=== PATIENT | female | born 1965 | race African-American/Black ===

== ENCOUNTER 2018-07-04 00:52 | Emergency (ER) | payer OTHER ==
[~2018-07-04] VITALS: Ht 172.7 cm; Wt 113.4 kg
[2018-07-04] MEDS ORDERED: QUETIAPINE FUMA25 MG ORAL (00:56)
[2018-07-04 01:00] VITALS: BP 168/84
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
[2018-07-04] MEDS ORDERED: LORazepam Inj 2mg/ml 1ml IV ONE (01:30)
[2018-07-04] MEDS ORDERED: LORazepam Inj 2mg/ml 1ml IM ONE (02:00)
--- NOTE | 2018-07-04 02:13 | Diagnostic Imaging Report ---
EXAM: XR Chest, 1 View CLINICAL HISTORY: DYSPNEA TECHNIQUE: Frontal view of the chest. COMPARISON: No relevant prior studies available. FINDINGS: Lungs: Low lung volumes. Patchy right lower lung infiltrates. Pleural space: Unremarkable. No pneumothorax. Heart: Unremarkable. No cardiomegaly. Mediastinum: Unremarkable. Bones/joints: Degenerative changes of the spine. IMPRESSION: Low lung volumes. Patchy right lower lung infiltrates.
--- NOTE | 2018-07-04 02:24 | NUR ---
ER Nurse Note: All labs sent per ERMD orders; awaiting results. Pt continously crying and yelling. Will continue to [facility].
[2018-07-04 02:26] LABS: APPEARANCE,URINE CLEAR; BILIRUBIN, URINE NEGATIVE (NEGATIVE); GLUCOSE, URINE (UA) NEGATIVE (NEGATIVE); KETONES,URINE NEGATIVE (NEGATIVE); LEUKOCYTE ESTERASE ,URINE NEGATIVE (NEGATIVE); NITRITE,URINE NEGATIVE (NEGATIVE); PH,URINE 5 (4.5-8.0); PROTEIN,URINE 2+ (NEGATIVE); UROBILINOGEN,URINE 1 MG/DL (0.0-1.0)
[2018-07-04 02:28] LABS: EOSINOPHILS % (AUTO) 2.5 % (0.0-3.0); HEMATOCRIT 40.7 % (37.0-47.0); HEMOGLOBIN 12.9 G/DL (12.0-16.0); LYMPHOCYTES % (AUTO) 23.9 % (20.0-45.0); MEAN CORPUSCULAR VOLUME 81 FL (80-99); MONOCYTES % (AUTO) 7.7 % (1.0-10.0); NEUTROPHILS % (AUTO) 64.9 % (45.0-75.0); PLATELET COUNT 308 K/UL (150-450); RED BLOOD COUNT 5.04 M/UL (4.20-5.40); RED CELL DISTRIBUTION WIDTH 16.5 % (11.6-14.8); WHITE BLOOD COUNT 10.9 K/UL (4.8-10.8)
[2018-07-04 02:35] LABS: ANION GAP 9 mmol/L (5-15); BLOOD UREA NITROGEN 26 mg/dL (7-18); CALCIUM 9.7 MG/DL (8.5-10.1); CARBON DIOXIDE 29 MMOL/L (21-32); CHLORIDE 103 MMOL/L (98-107); CREATININE 1.4 MG/DL (0.55-1.30); POTASSIUM 4.1 MMOL/L (3.5-5.1); SODIUM 141 MMOL/L (136-145)
[2018-07-04 02:47] LABS: ALANINE AMINOTRANSFERASE 27 U/L (12-78); ALBUMIN 3.1 G/DL (3.4-5.0); ALBUMIN/GLOBULIN RATIO 0.6 (1.0-2.7); ALKALINE PHOSPHATASE 143 U/L (46-116); ASPARTATE AMINO TRANSFERASE 54 U/L (15-37); BILIRUBIN,TOTAL 0.8 MG/DL (0.2-1.0); CREATINE KINASE 353 U/L (26-308)
[2018-07-04 02:47] LABS: COLOR,URINE YELLOW
--- NOTE | 2018-07-04 02:53 | Emergency Room Report ---
History of Present Illness General Chief Complaint: Medical Clearance Source: Patient, EMS, Law Enforcement Present Illness HPI Patient was being arrested. She started developing shortness of breath. She's in a wheelchair and has chronic edema of her legs. She's complaining about pain in her legs also. She denies any fevers or chills. She denies history of blood clots. She states she is not taking any medication at this time. She denies chest pain. No nausea vomiting diarrhea or dysuria. The patient admits to drug use at this time. She states she is extremely anxious. She denies suicidal or homicidal ideation. She has a psychiatric history and allegedly takes Seroquel. Allergies: Coded Allergies: No Known Allergies (Unverified , 07/04/18) Patient History Past Medical History: see triage record, HTN, other - Venous stasis disease Social History: Reports: smoking, alcohol use, drug use Social History Narrative Uses wheelchair Reviewed Nursing Documentation: PMH: Agreed; PSxH: Agreed Nursing Documentation-PMH Past Medical History: No History, Except For Hx Hypertension: Yes History Of Psychiatric Problem: Yes Review of Systems Gastrointestinal: Reports: no symptoms All Other Systems: negative except mentioned in HPI Physical Exam Vital Signs Date Time Temp Pulse Resp B/P (MAP) Pulse Ox O2 Delivery O2 Flow Rate FiO2 07/04/18 00:52 82 18 168/84 96 Room Air Patient feels afebrile Sp02 EP Interpretation: reviewed, normal General Appearance: well appearing, GCS 15, moderate distress, obese Head: normocephalic, atraumatic Eyes: bilateral eye PERRL, bilateral eye Scleral Injection ENT: moist mucus membranes - Poor dentition, mostly edentulous Neck: supple, no bony tend Respiratory: chest non-tender, lungs clear, normal breath sounds Cardiovascular #1: regular rate, rhythm, edema - Brawny bilaterally Cardiovascular #2: 2+ radial (R) Gastrointestinal: normal inspection, normal bowel sounds, non tender, no mass, non-distended, overweight Genitourinary: no CVA tenderness Musculoskeletal: back normal, normal range of motion, no calf tenderness, Uriel 's Sign negative, swelling, tender - Anterior tibia bilaterally Neurologic: alert, DTRs symmetric, sensory intact, motor weakness - Legs but wiggles toes and moves knees and feet. Poor compliance with strength exam, oriented - X2 Psychiatric: no suicidal/homicidal ideation, anxious - Very histrionic Skin: warm/dry, other - Venous stasis disease bilaterally without erythema Medical Decision Making Diagnostic Impression: Primary Impression: Venous stasis dermatitis Qualified Codes: I87.2 - Venous insufficiency (chronic) (peripheral) Additional Impressions: Substance abuse Anxiety Renal insufficiency ER Course Patient presents with anxiety, dyspnea and leg pain with a history of substance abuse. Differential includes pulmonary embolus, DVT, anxiety, acute myocardial infarction, congestive heart failure amongst others. Evaluation will be with EKG, chest x-ray and labs. The patient will be treated with a dose of Ativan. Although she has venous stasis disease bilaterally there is no calf tenderness. EKG without injury. Chest x-ray no infiltrates or congestive heart failure. Labs remarkable for positive cocaine and amphetamine. Minimally elevated white count with no left shift. Renal insufficiency which is mild. Elevated liver function tests. CK 353. After Ativan patient in no distress and sleeping. There is no evidence of medical emergency at this time. Patient is stable for booking and outpatient observation and treatment. Laboratory Tests Test 07/04/18 01:45 07/04/18 02:05 Urine Color Yellow Urine Appearance Clear Urine pH 5 (4.5-8.0) Urine Specific [place] 1.025 (1.005-1.035) Urine Protein 2+ (NEGATIVE) H Urine Glucose (UA) Negative (NEGATIVE) Urine Ketones Negative (NEGATIVE) Urine Blood 1+ (NEGATIVE) H Urine Nitrite Negative (NEGATIVE) Urine Bilirubin Negative (NEGATIVE) Urine Urobilinogen 1 MG/DL (0.0-1.0) H Urine Leukocyte Esterase Negative (NEGATIVE) Urine RBC 2-4 /HPF (0 - 2) H Urine WBC 2-4 /HPF (0 - 2) Urine Squamous Epithelial Cells Few /LPF (NONE/OCC) Urine Bacteria Few /HPF (NONE) Urine Opiates Screen Negative (NEGATIVE) Urine Barbiturates Screen Negative (NEGATIVE) Phencyclidine (PCP) Screen Negative (NEGATIVE) Urine Amphetamines Screen Positive (NEGATIVE) H Urine Benzodiazepines Screen Negative (NEGATIVE) Urine Cocaine Screen Positive (NEGATIVE) H Urine Marijuana (THC) Screen Negative (NEGATIVE) White Blood Count 10.9 K/UL (4.8-10.8) H Red Blood Count 5.04 M/UL (4.20-5.40) Hemoglobin 12.9 G/DL (12.0-16.0) Hematocrit 40.7 % (37.0-47.0) Mean Corpuscular Volume 81 FL (80-99) Mean Corpuscular Hemoglobin 25.5 PG (27.0-31.0) L Mean Corpuscular Hemoglobin Concent 31.6 G/DL (32.0-36.0) L Red Cell Distribution Width 16.5 % (11.6-14.8) H Platelet Count 308 K/UL (150-450) Mean Platelet Volume 7.5 FL (6.5-10.1) Neutrophils (%) (Auto) 64.9 % (45.0-75.0) Lymphocytes (%) (Auto) 23.9 % (20.0-45.0) Monocytes (%) (Auto) 7.7 % (1.0-10.0) Eosinophils (%) (Auto) 2.5 % (0.0-3.0) Basophils (%) (Auto) 1.0 % (0.0-2.0) Sodium Level 141 MMOL/L (136-145) Potassium Level 4.1 MMOL/L (3.5-5.1) Chloride Level 103 MMOL/L (98-107) Carbon Dioxide Level 29 MMOL/L (21-32) Anion Gap 9 mmol/L (5-15) Blood Urea Nitrogen 26 mg/dL (7-18) H Creatinine 1.4 MG/DL (0.55-1.30) H Estimate Glomerular Filtration Rate 47.6 mL/min (>60) Glucose Level 101 MG/DL (74-106) Calcium Level 9.7 MG/DL (8.5-10.1) Total Bilirubin 0.8 MG/DL (0.2-1.0) Aspartate Amino Transferase (AST) 54 U/L (15-37) H Alanine Aminotransferase (ALT) 27 U/L (12-78) Alkaline Phosphatase 143 U/L (46-116) H Total Creatine Kinase 353 U/L (26-308) H Pro-B-Type Natriuretic Peptide 166 pg/mL (0-125) H Total Protein 8.7 G/DL (6.4-8.2) H Albumin 3.1 G/DL (3.4-5.0) L Globulin 5.6 g/dL Albumin/Globulin Ratio 0.6 (1.0-2.7) L Salicylates Level 2.2 ug/mL (2.8-20) L Acetaminophen Level < 2 MCG/ML (10-30) L Serum Alcohol < 3 mg/dL EKG Diagnostic Results Rate: normal Rhythm: NSR ST Segments: no acute changes Rhythm Strip Diag. Results EP Interpretation: yes Rhythm: NSR, no PVC's, no ectopy Chest X-Ray Diagnostic Results Chest X-Ray Diagnostic Results : Chest X-Ray Ordered: Yes # of Views/Limited/Complete: 1 View Indication: Other EP Interpretation: Yes Interpretation: no consolidation, no effusion, no pneumothorax, other - inc cor Impression: Other Electronically Signed by: Electronically signed by Mayo Hamilton MD Last Vital Signs Date Time Temp Pulse Resp B/P (MAP) Pulse Ox O2 Delivery O2 Flow Rate FiO2 07/04/18 03:45 98 18 168/84 96 Room Air Status: improved Disposition: D/C TO [employer] IN [facility] Condition: Improved Referrals: NOT CHOSEN IPA/,REFERRING (PCP) Mayo Hamiltno MD Jul 04, 2018 02:53
[2018-07-04 03:45] VITALS: BP 168/84
--- NOTE | 2018-07-04 03:45 | NUR ---
ER Nurse Note: Pt seen, treated, medically cleared for medical clearance by ERMD. Discharge instruction given to [employer] ; pt was continously crying and yelling. Pt would not help with transfer; security was called for assistance. Pt VSS, no shortness of breath. Pt left with all belongings, ID band removed; via [employer].
--- NOTE | 2018-07-07 14:21 | Cardiology Report ---
APPROVED REPORT EKG Measurement Heart [id number] Normal sinus rhythm Prolonged QT Abnormal ECG
== END 2018-07-04 03:45 ==
LOC: EDBD 00:52 → EMR 01:17
DX: I87.2 Venous insufficiency (chronic) (peripheral) (principal); F19.10 Other psychoactive substance abuse, uncomplicated; F41.9 Anxiety disorder, unspecified; N28.9 Disorder of kidney and ureter, unspecified; I10 Essential (primary) hypertension
CPT/HCPCS: 36415; 71045; 80053; 80307; 81003; 82550; 83880; 85025; 93005; 96372; 96374; 99284; G0480; 80329